=== PATIENT | female | born 1980 | race African-American/Black ===

== ENCOUNTER 2018-06-10 04:38 | Emergency (ER) | payer MEDICAID ==
[~2018-06-10] VITALS: Ht 167.6 cm; Wt 64.0 kg
[~2018-06-10 04:38] MED LIST: FERR325T6 PO; IBUP-2030 PO; LISI-604 PO; OMEP20CA10 PO
[2018-06-10 06:54] VITALS: BP 158/89
[2018-06-10] MEDS ORDERED: ACETAMINOPHEN 500MG TABLET PO ONE (07:00)
[2018-06-10] MEDS ORDERED: GABAPENTIN 100MG CAPSULE PO ONE (07:00)
== END 2018-06-10 07:50 | disposition left against medical advice (07) ==
LOC: ER 04:38
DX: S03.2XXA Dislocation of tooth, initial encounter (principal); S00.511A Abrasion of lip, initial encounter; F10.129 Alcohol abuse with intoxication, unspecified; Y90.9 Presence of alcohol in blood, level not specified; I10 Essential (primary) hypertension; F17.210 Nicotine dependence, cigarettes, uncomplicated; Z88.0 Allergy status to penicillin; W01.0XXA Fall on same level from slipping, tripping and stumbling without subsequent striking against object, initial encounter; Y93.89 Activity, other specified; Y92.018 Other place in single-family (private) house as the place of occurrence of the external cause
CPT/HCPCS: 99283